=== PATIENT | male | born 1960 | race Caucasian/White ===

== ENCOUNTER 2020-11-25 06:39 | Outpatient (CLI) | payer OTHER ==
--- NOTE | 2020-11-25 10:41 | Ultrasound Report ---
ULTRASOUND ABDOMEN, COMPLETE INDICATION / CLINICAL INFORMATION: ELEVATED LIVER ENZYMES. COMPARISON: None available. FINDINGS: PANCREAS: Not well visualized due to overlying bowel gas. ABDOMINAL AORTA: No significant abnormality. IVC: No significant abnormality. LIVER: The liver is normal in size measuring 13.5 cm . No evidence of focal hepatic lesion. Normal he patopedal blood flow within the main portal vein. GALLBLADDER: No significant abnormality. BILE DUCTS: No significant abnormality. Common bile duct measures 2.7 mm. KIDNEYS: Right: The right kidney measures 11.1 cm. No significant abnormality. Left: The left kidney measures 11.0 cm. No significant abnormality. SPLEEN: The spleen measures 7.5 cm. No significant abnormality. FREE FLUID: None. ADDITIONAL FINDINGS: None. IMPRESSION: 1. No significant sonographic abnormality of the abdomen. 2. Nonvisualization of the pancreas sonographically. Scribed by: Tanesha Reddy RDMS, RVT Scribed: 11/25/2020 9:29 AM I have reviewed the images, agree with this report, and edited this report as needed. Signer Name: Stanford Chang MD Signed: 11/25/2020 10:37 AM Workstation Name: [id number]
== END 2020-11-25 06:40 | disposition home or self-care (01) ==
LOC: US 06:39
PROVIDERS: ATTEND Family Medicine
DX: R74.8 Abnormal levels of other serum enzymes (principal)
CPT/HCPCS: 76700